=== PATIENT | female | born 1960 | race Caucasian/White ===

== ENCOUNTER 2023-03-02 06:56 | Emergency (ER) | payer MEDICAID ==
[~2023-03-02] VITALS: Ht 160 cm; Wt 100.0 kg
[2023-03-02 06:59] VITALS: O2SAT 97
[2023-03-02] MEDS ORDERED: PREDNISONE 20MG TABLET PO STA (07:09)
[2023-03-02] MEDS ORDERED: ALBUTEROL (0.083%) 2.5MG/3ML NEB HHN STA (07:09)
[2023-03-02] MEDS ORDERED: IPRATROPIUM BROMIDE (0.02%) 0.5MG/2.5ML NEB HHN STA (07:09)
[2023-03-02 07:55] VITALS: PULSE 85; RESP 20
[2023-03-02 07:56] LABS: BASOPHILS % 0.7 % (0.0-2.0); EOSINOPHILS % 7.4 % (0.0-5.0); HEMATOCRIT. 40.5 % (36.0-48.0); HEMOGLOBIN. 13.4 g/dL (12.0-16.0); MEAN CORPUSCULAR HEMOGLOBIN 26.4 pg (28.0-32.0); MONOCYTES % 7.5 % (2.0-8.0); NEUTROPHILS % 57.4 % (40.0-76.0); PLATELET 141 x1000/uL (130-400); RED BLOOD CELL COUNT 5.07 mill/uL (4.2-5.4); RED CELL DISTRIBUTION WIDTH 14.8 % (11.6-14.6)
[2023-03-02 08:08] LABS: CHLORIDE 113 mEq/L (98-107); INDEX HEMOLYSI 1 (1-3); INDEX ICTERIC 1 (1-4); INDEX LIPEMIC 1 (1-3); POTASSIUM 3.8 mEq/L (3.5-5.1); SODIUM 140 mEq/L (136-145)
[2023-03-02 08:17] LABS: ALANINE AMINOTRANSFERASE 69 IU/L (13-61); ALBUMIN 3.3 g/dL (3.4-5.0); ASPARTATE AMINOTRANSFERASE 38 IU/L (15-37); BILIRUBIN TOTAL 0.8 mg/dL (0.1-1.0); CALCIUM 8.7 mg/dL (8.5-10.1); CARBON DIOXIDE 23 mEq/L (21-32); CREATININE 0.8 mg/dL (0.6-1.3); GLUCOSE 115 mg/dL (70-105); NT PRO B-TYPE NATRIURETIC PEP 54 pg/mL (5-125); PROTEIN TOTAL 8.6 g/dL (6.0-8.3); UREA NITROGEN BLOOD 21 mg/dL (7-21)
[2023-03-02 10:00] VITALS: TEMP 98.2
[2023-03-02] MEDS ORDERED: ALBU6.7H3 INH (11:44)
[2023-03-02] MEDS ORDERED: MOME13HF12 INH (11:44)
[2023-03-02 11:59] VITALS: BP 184/92; PULSE 97; RESP 18
== END 2023-03-02 12:01 | disposition home or self-care (01) ==
LOC: ER 06:56
DX: J45.909 Unspecified asthma, uncomplicated (principal); I10 Essential (primary) hypertension; Z20.822 Contact with and (suspected) exposure to COVID-19
CPT/HCPCS: 80053; 83880; 85025; 87804 ×2; 36415; 71045; 93970; 94640; 99284; 87426; J7512; Z7610 ×3; C9803